=== PATIENT | male | born 1970 ===

== ENCOUNTER → 2023-03-05 10:02 | Outpatient (POV) | payer MEDICAID, SELFPAY ==
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
[2023-03-05 11:00] VITALS: BP 177/110; PULSE 75; RESP 18; O2SAT 98; BMI 25.0
== END ==
LOC: SC.PAIN 10:03
PROVIDERS: PCP Family Medicine; Visit Provider Nurse Practitioner Family
DX: G89.4 Chronic pain syndrome (principal); M50.10 Cervical disc disorder with radiculopathy, unspecified cervical region; M06.9 Rheumatoid arthritis, unspecified; M54.6 Pain in thoracic spine
CPT/HCPCS: 99202; G0463

== ENCOUNTER 2023-04-02 14:29 | Outpatient (POV) | payer MEDICAID, SELFPAY ==
[2023-04-02 14:30] VITALS: BP 166/100; PULSE 67; RESP 18; O2SAT 96; BMI 26.0
--- NOTE | 2023-04-02 15:02 | A.OFFVIS_ITS ---
[facility] Pain Management SOAP Note Subjective:: Patient is a pleasant 53-year-old male who presents today for follow-up. We are currently treating the patient for neck pain, arm pain, mid back pain. Today he rates his pain a 9 out of 10. Patient denies any new trauma or injury. He states he continues to have constant stabbing, achy sensations in his upper neck with radiating symptoms to his arms with numbness and tingling. Patient has had this going on for years and is scheduled for a cervical procedure to replace prior hardware from a cervical fusion that was done in 2009 coming up in April. Patient states that this is going to be done by Dr. Moreland at [facility] and that he has been told in the past that he has to get pain medication from a pain management facility. Patient does state that he is having debilitating pain and is requesting if we can send something in. Patient states that he is scheduled to meet with a rehabilitation therapy aide tomorrow in order to get surgical clearance and that his official surgery date would then be April 22. His Wilber has been reviewed and is appropriate. Review of Systems: General: No recent weight changes, no fever, no sleep disturbances Respiratory: No cough, no shortness of air, no recurring pulmonary infections Cardiovascular/peripheral vascular: No chest pain, no palpitations, no edema, no shortness of breath Gastrointestinal: No new onset incontinence, normal bowel movements reported Genitourinary: No new onset incontinence Musculoskeletal: Neck pain, upper arm pain Psychiatric: [Normal mood/affect] Neurological: [Denies weakness in extremities], [denies balance issues] Objective:: Physical Exam: General: Alert and oriented x3, no acute distress, pleasant and cooperative Lungs: Respirations even and unlabored, symmetrical chest expansion Eyes: PERRL Musculoskeletal: Flexion and extension of cervical [spine] somewhat guarded secondary to pain, [antalgic gait noted] Neurological: Speech clear, no gross sensory deficit Assessment:: Neck pain with cervical radiculopathy symptoms, mid back pain, status post cervical fusion Plan:: Patient continues to experience significant pain in his neck related to previous hardware from a cervical fusion with radiating symptoms to his upper extremities. I have discussed with Dr. Hester regarding this patient's care and upcoming cervical surgery. We will send in a 1 month supply of Percocet 7.5 mg 3 times a day. I did correctional counselor the patient that we will assume that the doctor will be prescribing postop pain medication following his surgery and that we will follow-up with him roughly 2 months after his cervical surgery. Risks and benefits of the medication have been explained in detail to the patient. The patient does understand the risk of dependence on the medication when given over a prolonged period. Patient has been advised of risks of oversedation with the prescribed medication. Narcan has been offered to the paitent in the event of oversedation. Patient has been advised that a family member should also be educated regarding administration of Narcan. The patient has been advised to consult with his/her primary care provider and pharmacist regarding drug-drug interaction of medications currently prescribed. Patient has been prescribed a controlled substance after being counseled on the medication, medication safety, and possible side effects. Opioid contract was reviewed and signed by the patient, and that they have agreed to all of the terms set forth by our compliance program. Patient has been instructed to contact the clinic with any concerns before the next appointment. Dr. Hester has reviewed this note and agrees with this plan of care. This note was dictated using voice recognition software and make contain errors or omissions. [facility] Disclaimer: The information contained in this section may have been updated after the candelario martinez was seen, as this information can be updated by other users. Medical History (Updated 03/05/23 @ 11:31 by Jazmine Dumas APRN) Arthritis CVA (cerebral vascular accident) Hypertension Surgical History (Updated 03/05/23 @ 10:14 by Polly Beth RN) History of tympanostomy tube placement Hx of tonsillectomy Previous back surgery Family History (Updated 03/05/23 @ 10:14 by Polly Beth RN) Other Unknown family medical history Social History (Updated 03/05/23 @ 10:16 by Polly Beth RN) Smoking Status: Current every day smoker alcohol intake: current current occupational status: other Travel in the last 8 weeks: None
== END 2023-04-02 23:59 | disposition home or self-care (01) ==
PROVIDERS: PCP Family Medicine; Visit Provider Nurse Practitioner Family
DX: M54.12 Radiculopathy, cervical region (principal); Z98.1 Arthrodesis status; M43.22 Fusion of spine, cervical region
CPT/HCPCS: 99212; G0463